=== PATIENT | male | born 1965 | race Caucasian/White ===

== ENCOUNTER → 2020-03-30 13:34 | Outpatient (BNVA) | payer SELFPAY | PROVIDERS: Family Provider Nurse Practitioner Family; PCP Nurse Practitioner Family; Visit Provider Registered Nurse | DX: N20.0 Calculus of kidney (principal); N13.4 Hydroureter; Z09 Encounter for follow-up examination after completed treatment for conditions other than malignant neoplasm; Z98.890 Other specified postprocedural states; Z87.442 Personal history of urinary calculi; N50.812 Left testicular pain | CPT/HCPCS: 81000 ==

== ENCOUNTER 2020-03-31 09:48 | Outpatient (CLI) | payer SELFPAY ==
--- NOTE | 2020-03-31 08:00 | XRR_ITS ---
PROCEDURE INFORMATION: Exam: XR Abdomen, 1 View Exam date and time: 03/31/2020 10:13 AM Age: 54 years old Clinical indication: Condition or disease; Kidney or ureter condition; Calculus (stone) in kidney; Patient HX: Kidney stone followup. Previous CT 03/26/20; Additional info: Stones TECHNIQUE: Imaging protocol: XR of the abdomen. Views: Frontal supine view of the abdomen. 1 View. COMPARISON: CT Abdomen/Pelvis Renal [id number] 03/26/2020 1:47 AM FINDINGS: Gastrointestinal tract: The bowel gas pattern is nonspecific. Air filled large bowel including distal rectal gas. Intraperitoneal space: Calcification previously noted in the proximal left ureter is not visualized. Calcification in the left pelvis is likely disc calcification having moved caudally. Organs: Tiny calcifications overlie the right kidney largest of approximately 3-4 mm. Bones/joints: Unremarkable. XR/XR KUB [id number] IMPRESSION: 1. Tiny calcifications overlie the right kidney largest of approximately 3-4 mm. 2. Calcification previously noted in the proximal left ureter is not visualized. Calcification in the left pelvis is likely calcification having moved caudally. 3. The bowel gas pattern is nonspecific. Air filled large bowel including distal rectal gas.
== END 2020-03-31 09:49 | disposition home or self-care (01) ==
LOC: RAD 09:54
PROVIDERS: PCP Nurse Practitioner Family; Visit Provider Urology
DX: N20.0 Calculus of kidney (principal)
CPT/HCPCS: 74018; 81001

== ENCOUNTER → 2020-08-16 09:09 | Outpatient (BNVA) | payer SELFPAY | PROVIDERS: PCP Nurse Practitioner Family; Visit Provider Nurse Practitioner Family | DX: I10 Essential (primary) hypertension (principal) | CPT/HCPCS: 80053; 80061 ==

== ENCOUNTER → 2020-09-26 11:29 | Outpatient (BNVA) | payer SELFPAY | PROVIDERS: PCP Nurse Practitioner Family; Visit Provider Nurse Practitioner Family | DX: E78.5 Hyperlipidemia, unspecified (principal); I10 Essential (primary) hypertension | CPT/HCPCS: 80076 ==

== ENCOUNTER → 2020-11-08 08:26 | Outpatient (BNVA) | payer SELFPAY | PROVIDERS: PCP Nurse Practitioner Family; Visit Provider Nurse Practitioner Family | DX: R74.8 Abnormal levels of other serum enzymes (principal) | CPT/HCPCS: 80076 ==

== ENCOUNTER → 2021-04-07 08:09 | Outpatient (BNVA) | payer SELFPAY | PROVIDERS: PCP Nurse Practitioner Family; Visit Provider Nurse Practitioner Family | DX: E78.5 Hyperlipidemia, unspecified (principal); I10 Essential (primary) hypertension | CPT/HCPCS: 80048; 80061 ==

== ENCOUNTER → 2022-05-21 14:40 | Outpatient (BNVA) | payer SELFPAY | PROVIDERS: PCP Nurse Practitioner Family; Visit Provider Nurse Practitioner Family | DX: E78.5 Hyperlipidemia, unspecified (principal); I10 Essential (primary) hypertension | CPT/HCPCS: 80053; 80061 ==

== ENCOUNTER → 2022-12-25 16:30 | Outpatient (BNVA) | payer SELFPAY | PROVIDERS: PCP Nurse Practitioner Family; Visit Provider Nurse Practitioner Family | DX: E78.5 Hyperlipidemia, unspecified (principal); I10 Essential (primary) hypertension; J34.3 Hypertrophy of nasal turbinates | CPT/HCPCS: 80053; 80061 ==

== ENCOUNTER → 2023-01-04 10:00 | Outpatient (BNVA) | payer SELFPAY | PROVIDERS: PCP Nurse Practitioner Family; Visit Provider Nurse Practitioner Family | DX: E78.5 Hyperlipidemia, unspecified (principal); R73.09 Other abnormal glucose; E87.6 Hypokalemia; Z98.890 Other specified postprocedural states; Z87.442 Personal history of urinary calculi | CPT/HCPCS: 83036 ==

== ENCOUNTER → 2023-09-13 09:54 | Outpatient (BNVA) | payer SELFPAY | PROVIDERS: PCP Nurse Practitioner Family; Visit Provider Nurse Practitioner Family | DX: I10 Essential (primary) hypertension (principal); R60.9 Edema, unspecified; R20.2 Paresthesia of skin; E78.5 Hyperlipidemia, unspecified; E78.2 Mixed hyperlipidemia | CPT/HCPCS: 80053; 80061; 82607; 83880 ==

== ENCOUNTER 2024-06-03 11:43 | Day surgery (SDC) | payer OTHER, SELFPAY ==
[2024-06-03 12:13] VITALS: BP 154/100; PULSE 52; RESP 18; TEMP 36.8; O2SAT 96
[2024-06-03] MEDS: sodium chloride 0.9% 1,000 ML 30 ML IV (12:25)
--- NOTE | 2024-06-03 12:53 | ANES.PREANE2 ---
Pre-Anesthetic Assessment Height/Weight: Height 1.52 m Weight 102.058 kg Temp Pulse Resp BP Pulse Ox O2 Del Method 98.3 F 52 L 18 154/100 96 Room Air 06/03/24 12:13 06/03/24 12:13 06/03/24 12:13 06/03/24 12:13 06/03/24 12:13 06/03/24 12:13 Operation Date: 06/03/24 13:00 Proposed Procedures p EGD 29309, 12701, G0105, R19.5, K21.9, Z80.0(Not Applicable) - Edgardo Christina DO s Colonoscopy(Not Applicable) - Edgardo Christina DO Familial anesthetic complications: NOne Was Beta Ann taken within 24 hours: N/A Was Clonidine taken within 24 hours: N/A Last intake: Intake Last Liquid Date 06/03/24 Last Liquid Time 08:00 Last Solid Date 06/01/24 Last Solid Time 18:00 Social No alcohol and No tobacco Exam alert, oriented x 3, clear to auscultation bilaterally and regular rate & rhythm Airway Mallampati: Class III Dentition: full CV/HEM Hypertension Metabolic Hyperlipidemia Anesthetic Plan ASA status: 2 Anesthesia: MAC Risk of > 500 ml blood loss (7ml/kg in children): No Other Pertinent Information Recently taking Prednisone pulse for rosacea flair up Medications/Allergies Home Medications Medication Instructions Recorded Confirmed Last Taken Type amlodipine 10 mg tablet 10 mg PO DAILY 05/28/24 05/28/24 06/03/24 History prednisone 10 mg tablet 10 mg PO DAILY 05/28/24 05/28/24 06/01/24 History simvastatin 10 mg tablet 10 mg PO DAILY 05/28/24 05/28/24 06/01/24 History Allergies Allergy/AdvReac Type Severity Reaction Status Date / Time Penicillins Allergy Mild RASH Verified 04/13/24 09:13 Current Medications Generic Name Dose Route Start Last Admin Trade Name Freq PRN Reason Stop Dose Admin Sodium Chloride 1,000 mls @ 30 mls/hr 06/03/24 12:15 06/03/24 12:25 Sodium Chloride 0.9% IV 06/04/24 12:14 30 mls/hr .Q24H LAYNE Administration PFSH Anesthesia Medical History (Updated 04/13/24 @ 09:37 by Edgardo Christina DO) Family history of colon cancer H/O nephrolithotomy with removal of calculi Sinusitis, acute Hyperlipidemia Hypertension S/P extracorporeal shock wave therapy Left ureteral calculus Family History Father Chronic kidney disease (CKD) Diabetes CAD (coronary artery disease) Hyperlipidemia Hypertension Social History Smoking and tobacco/nicotine status: never used tobacco/nicotine Alcohol intake: never Substance/Drug Use: never Household members: spouse Marital status: Current occupational status: employed Data Anesthesia Cardiac Studies: No Data to Display
--- NOTE | 2024-06-03 14:05 | PM.HP ---
Providers/Chief Complaint Primary Care Provider: Loraine Rodriguez Chief Complaint: R19.5 History of Present Illness Alverto Ngo is a 58 year old male Review of Systems General: Reports: 10 or more systems reviewed and unremarkable except in HPI and below Medications/Allergies Home Medications Medication Instructions Recorded Confirmed Last Taken Type amlodipine 10 mg tablet 10 mg PO DAILY 05/28/24 05/28/24 06/03/24 History prednisone 10 mg tablet 10 mg PO DAILY 05/28/24 05/28/24 06/01/24 History simvastatin 10 mg tablet 10 mg PO DAILY 05/28/24 05/28/24 06/01/24 History Allergies Allergy/AdvReac Type Severity Reaction Status Date / Time Penicillins Allergy Mild RASH Verified 04/13/24 09:13 PFSH Acute PFSH: Medical History (Updated 04/13/24 @ 09:37 by Edgardo Christina DO) Family history of colon cancer H/O nephrolithotomy with removal of calculi Sinusitis, acute Hyperlipidemia Hypertension S/P extracorporeal shock wave therapy Left ureteral calculus Family History Father Chronic kidney disease (CKD) Diabetes CAD (coronary artery disease) Hyperlipidemia Hypertension Social History Smoking and tobacco/nicotine status: never used tobacco/nicotine Alcohol intake: never Substance/Drug Use: never Household members: spouse Marital status: Current occupational status: employed Vitals/I&O/Wt Last Vital Signs Temp 98.3 F 06/03/24 12:13 Pulse 52 L 06/03/24 12:13 Resp 18 06/03/24 12:13 BP 154/100 06/03/24 12:13 Pulse Ox 96 06/03/24 12:13 O2 Del Method Room Air 06/03/24 12:13 Weight last 48 hrs Weight 225 lb A&P Assessment and plan (1) Positive colorectal cancer screening using Cologuard test: (2) GERD (gastroesophageal reflux disease): (3) Family history of colon cancer: Plan EGD and colonoscopy Attestations Medical Necessity Statement*: Home Coding Level of Care Code Acute Code for Chg Fwd Diagnoses Positive colorectal cancer screening using Cologuard test R19.5 GERD (gastroesophageal reflux disease) K21.9 Family history of colon cancer Z80.0
[2024-06-03 14:32] VITALS: BP 118/86; PULSE 76; RESP 17; TEMP 36.6; O2SAT 96
[2024-06-03 14:45] VITALS: BP 116/82; PULSE 71; RESP 18; O2SAT 94
--- NOTE | 2024-06-03 15:33 | ANE.PACU2 ---
Inpatient post-anesthesia follow up: Airway intact: Yes Vital signs: Temperature 98 F Pulse Rate 71 Respiratory Rate 18 Blood Pressure 116/82 Pulse Oximetry 94 Oxygen Delivery Me thod Room Air Oxygen Flow Rate 10 Fraction of Inspir ed Oxygen Hydration adequate: Yes Nausea and vomiting: No Pain level: 1 Mental status: Baseline
== END 2024-06-03 15:33 | disposition home or self-care (01) ==
PROVIDERS: PCP Registered Nurse; Visit Provider Surgery
PROC: 0DJ08ZZ Inspection of Upper Intestinal Tract, Via Natural or Artificial Opening Endoscopic (ICD-10-PCS; CPT 43235; principal; 2024-06-03 13:00)
PROC: 0DJD8ZZ Inspection of Lower Intestinal Tract, Via Natural or Artificial Opening Endoscopic (ICD-10-PCS; CPT 45378; 2024-06-03 13:00)
DX: Z12.11 Encounter for screening for malignant neoplasm of colon (principal); D12.3 Benign neoplasm of transverse colon; R19.5 Other fecal abnormalities; K21.9 Gastro-esophageal reflux disease without esophagitis; Z80.0 Family history of malignant neoplasm of digestive organs; E78.5 Hyperlipidemia, unspecified; I10 Essential (primary) hypertension
CPT/HCPCS: 43239; 45385; 88305; J2704; J3490; J7030